=== PATIENT | female | born 1940 | race Caucasian/White ===

== ENCOUNTER 2016-06-14 11:51 | Inpatient (IN) | payer MEDICARE ==
[~2016-06-14] VITALS: Ht 162.6 cm; Wt 61.5 kg
[2016-06-14] VITALS (9 sets, daily range): BP systolic 180–215; BP diastolic 77–95; PULSE 67–80; RESP 16–18; TEMP 96.8–98.5; O2SAT 96–98
[~2016-06-14 11:51] MED LIST: CARB25TA; HYDR12.56; NAPR500; PYRI100T4; SIMV20; TRAM50; TRAZ100T50; VENL75TA91
--- NOTE | 2016-06-14 12:12 | PD ---
HPI Chief Complaint: General Weakness Time Seen by Provider: 12:12 Travel History International Travel<30 days: No Contact w/Intl Traveler<30days: No Traveled to known affect area: No History of Present Illness HPI Patient is a 75-year-old female with a history of CVA 8 years prior with left- sided weakness that has resolved presenting with a 2 week history of right arm and right leg weakness and "bumping into things ". She states since yesterday morning the weakness has gotten worse and she has had some facial droop on the right. She states that this morning she was unable to use her right leg to walk properly and she fell in a controlled fashion to the ground but did land on her right knee. She did not hit her head or lose consciousness. She denies any headaches, dizziness, nausea, vomiting, fever, neck stiffness, chest pain, shortness of breath, abdominal pain or paresthesias in her extremities. She denies any loss of bowel or bladder dysfunction. She currently takes aspirin daily. PFSH Past Medical History Arthritis: Yes Blood Disorders: No Depression: Yes Cancer: No Cardiovascular Problems: Yes High Cholesterol: Yes COPD: Yes Cerebrovascular Accident: Yes Diabetes: Yes Endocrine: Yes Genitourinary: Yes Hypertension: Yes Immune Disorder: No Musculoskeletal: Yes Neurologic: No Psychiatric: Yes Reproductive: No Respiratory: Yes ?: Not Past Surgical History Abdominal Surgery: Yes (CHOLECYSTECTOMY) Gynecologic Surgery: Yes (PARTIAL HYSTERECTOMY) Hysterectomy: Yes Pacemaker: No Social History Alcohol Use: No Tobacco Use: Yes (1 PPD) Substance Use: No Allergies-Medications (Allergen,Severity, Reaction): Coded Allergies: No Known Allergies (Verified Allergy, Mild, 07/16/06) Reported Meds & Prescriptions Reported Meds & Active Scripts Active Reported Glipizide 5 Mg Tab 5 Mg PO BIDAC Take 30 minutes before a meal Naproxen 500 Mg Tab 500 Mg PO BID Aspirin 81 Mg Tabdr 81 Mg PO DAILY Lisinopril 20 Mg Tab 20 Mg PO DAILY Metformin (Metformin HCl) 500 Mg Tab 500 Mg PO DAILY With a meal Trazodone (Trazodone HCl) 100 Mg Tab 100 Mg PO HS Tramadol (Tramadol HCl) 50 Mg Tab 50 Mg PO Q4H PRN Simvastatin 40 Mg Tab 40 Mg PO HS Metoprolol Tartrate 50 Mg Tab 50 Mg PO BID Review of Systems Except as stated in HPI: all other systems reviewed are Neg Physical Exam Narrative GENERAL: Well-developed and well-nourished adult female in no acute distress. SKIN: Warm and dry. Good turgor without tenting. HEAD: Normocephalic and atraumatic. EYES: PERRL bilaterally, 4mm. EOMI bilaterally. No injection or icterus present. No proptosis. Lids without edema or erythema. ENT: Buccal mucosa pink and moist. Oropharynx free of erythema, tonsillar hypertrophy, masses, swelling, asymmetry and exudates. Uvula midline and airway patent. NECK: Supple, no midline tenderness, crepitus or step-offs. Trachea midline, no JVD. No cervical or facial lymphadenopathy. CARDIOVASCULAR: Regular rate and rhythm without murmurs, rubs, clicks or gallops. Radial and posterior tibial pulses 2+ bilaterally. No pedal edema. RESPIRATORY: Clear to auscultation bilaterally with symmetrical rise and fall, no distress or use of accessory muscles. GASTROINTESTINAL: Non-tender, non-distended. Normal bowel sounds all 4 quadrants. No masses or organomegaly present. MUSCULOSKELETAL: Right knee has mild ecchymosis anteriorly and is tender to touch but has normal range of motion in the knee without increased laxity. Extremities without clubbing, cyanosis, or edema. No obvious deformities. NEUROLOGIC: Right-sided facial droop with tongue deviation towards the right. Awake and alert and oriented. Slow finger-nose testing with the left upper extremity, cannot perform with the right arm. Right shoulder strength 1/5, 2/5 elbow flexion and extension and reclamation worker strength. Right lower extremity is 4/5 strength in hip flexion, hip extension, knee extension, plantar and dorsiflexion. Sensation intact bilateral upper extremities but is somewhat reduced diffusely on the right upper extremity, no discrepancies with sensation of the bilateral lower extremities. They bilateral Homans sign. Downgoing Babinski's bilaterally. Normal speech. PSYCHIATRIC: Appropriate mood and affect; insight and judgment normal. Data Data Last Documented VS Vital Signs Date Time Temp Pulse Resp B/P Pulse Ox O2 Delivery O2 Flow Rate FiO2 06/14/16 13:20 80 18 214/92 96 Room Air 06/14/16 11:57 98.5 Orders Electrocardiogram (06/14/16 12:10) Prothrombin Time / Inr (Pt) (06/14/16 12:10) Act Partial Throm Time (Ptt) (06/14/16 12:10) Complete Blood Count With Diff (06/14/16 12:10) Comprehensive Metabolic Panel (06/14/16 12:10) Creatine Kinase (Cpk) (06/14/16 12:10) Drug Screen, Random Urine (06/14/16 12:10) Troponin I (06/14/16 12:10) Urinalysis - C+S If Indicated (06/14/16 12:10) Ct Brain W/O Iv Contrast(Rout) (06/14/16 12:10) Chest, Single Ap (06/14/16 12:10) Ecg Monitoring (06/14/16 12:10) Iv Access Insert/Monitor (06/14/16 12:10) Oximetry (06/14/16 12:10) Sodium Chloride 0.9% Flush (Ns Flush) (06/14/16 12:15) Knee, Complete (4vws) (06/14/16 12:10) Urine Culture (06/14/16 12:20) Consult Neurology (06/14/16 ) (Hub Use Only)Inp Phy Cons/Ref (06/14/16 ) Nitrofurantoin Monohyd Macrocr (Macrobid (06/14/16 13:30) Aspirin (Aspirin) (06/14/16 13:30) Admit Order (Ed Use Only) (06/14/16 13:53) Labs Laboratory Tests Test 06/14/16 12:20 White Blood Count 8.6 TH/MM3 Red Blood Count 4.82 MIL/MM3 Hemoglobin 15.5 GM/DL Hematocrit 43.8 % Mean Corpuscular Volume 90.9 FL Mean Corpuscular Hemoglobin 32.2 PG Mean Corpuscular Hemoglobin 35.4 % Concent Red Cell Distribution Width 12.8 % Platelet Count 163 TH/MM3 Mean Platelet Volume 9.8 FL Neutrophils (%) (Auto) 67.9 % Lymphocytes (%) (Auto) 24.8 % Monocytes (%) (Auto) 6.2 % Eosinophils (%) (Auto) 0.6 % Basophils (%) (Auto) 0.5 % Neutrophils # (Auto) 5.8 TH/MM3 Lymphocytes # (Auto) 2.1 TH/MM3 Monocytes # (Auto) 0.5 TH/MM3 Eosinophils # (Auto) 0.1 TH/MM3 Basophils # (Auto) 0.0 TH/MM3 CBC Comment DIFF FINAL Differential Comment Prothrombin Time 10.9 SEC Prothromb Time International 1.0 RATIO Ratio Activated Partial 25.0 SEC Thromboplast Time Urine Color YELLOW Urine Turbidity CLEAR Urine pH 6.5 Urine Specific Peak 1.012 Urine Protein TRACE mg/dL Urine Glucose (UA) 1000 mg/dL Urine Ketones TRACE mg/dL Urine Occult Blood NEG Urine Nitrite POS Urine Bilirubin NEG Urine Urobilinogen LESS THAN 2.0 MG/DL Urine Leukocyte Esterase NEG Urine RBC LESS THAN 1 /hpf Urine WBC 1 /hpf Urine Squamous Epithelial 1 /hpf Cells Urine Mucus FEW /lpf Microscopic Urinalysis Comment CATH-CULTURE IND Sodium Level 136 MEQ/L Potassium Level 4.7 MEQ/L Chloride Level 99 MEQ/L Carbon Dioxide Level 22.8 MEQ/L Anion Gap 14 MEQ/L Blood Urea Nitrogen 6 MG/DL Creatinine 0.63 MG/DL Estimat Glomerular Filtration 93 ML/MIN Rate Random Glucose 240 MG/DL Calcium Level 8.4 MG/DL Total Bilirubin 1.0 MG/DL Aspartate Amino Transf 64 U/L (AST/SGOT) Alanine Aminotransferase 56 U/L (ALT/SGPT) Alkaline Phosphatase 183 U/L Total Creatine Kinase 175 U/L Troponin I 0.14 NG/ML Total Protein 7.6 GM/DL Albumin 3.5 GM/DL [facility] Medical Decision Making Medical Screen Exam Complete: Yes Emergency Medical Condition: Yes Differential Diagnosis CVA versus TIA versus hypertensive emergency versus brain mass versus myelitis Narrative Course Patient is a 75-year-old female with history of CVA years prior presenting with 2 weeks of right-sided weakness that has acutely worsened approximately the last 24+ hours. She had a "fall" this morning as she was trying to walk due to right leg weakness and lowered herself to the ground and has had some pain with the right knee. She has significant weakness in the right upper extremity and slight weakness in the right leg. Reduced sensation on the right upper extremity as well as facial droop and tongue deviation. She denies any other symptoms at this time and exam is otherwise unremarkable. Conferred with Dr. Miller who also evaluated this patient and agrees to has likely suffered a CVA. Given the time there is no emergent treatment. CT scan does show a 1 cm low density area in the left basal ganglion consistent with stroke of indeterminate age or possible cephalo-malacia. Patient also had positive nitrates and was given first dose of Macrobid here. Dr. Peterson spoke to neurology and admitted the patient. Please refer to her note for final disposition.I discussed this patient with Dr. Miller throughout their care. She has also evaluated this patient, helped formulate, and agrees with the assessment and plan. Diagnosis Primary Impression: CVA (cerebral vascular accident) Qualified Code: I63.9 - Cerebrovascular accident (CVA), unspecified mechanism Additional Impression: Cystitis Admitting Information Admitting Physician Requests: Admit Condition: Stable George Chao III Jun 14, 2016 12:12
[2016-06-14] MEDS ORDERED: SODIUM CHLORIDE 0.9% FLUSH 5 ML FLUSH IVF PRN ×2 (12:15→14:00)
[2016-06-14] MEDS ORDERED: METO50TA PO (12:27)
[2016-06-14] MEDS ORDERED: SIMV40TA PO (12:27)
[2016-06-14 12:31] LABS: AUTOMATED NEUTROPHIL # 5.8 TH/MM3 (1.8-7.7); BASOPHIL % 0.5 % (0.0-2.0); EOSINOPHIL # 0.1 TH/MM3 (0-0.4); EOSINOPHIL % 0.6 % (0.0-4.0); HEMATOCRIT 43.8 % (35.0-46.0); HEMO FLAGS DIFF FINAL; LYMPH % 24.8 % (9.0-44.0); LYMPHOCYTE # 2.1 TH/MM3 (1.0-4.8); MEAN CELL VOLUME 90.9 FL (80.0-100.0); MEAN CORPUSCULAR HEMOGLOBIN 32.2 PG (27.0-34.0); MEAN CORPUSCULAR HGB CONC 35.4 % (32.0-36.0); MONO % 6.2 % (0.0-8.0); NEUT % 67.9 % (16.0-70.0); PLATELET COUNT 163 TH/MM3 (150-450); RED BLOOD COUNT 4.82 MIL/MM3 (4.00-5.30); RED CELL DISTRIBUTION WIDTH 12.8 % (11.6-17.2); WHITE BLOOD COUNT 8.6 TH/MM3 (4.0-11.0)
[2016-06-14 12:38] LABS: BLOOD, URINE NEG (NEG); GLUCOSE,URINE 1000 mg/dL (NEG); KETONE, URINE TRACE mg/dL (NEG); MUCUS URINE FEW /lpf (OCC); PH, URINE 6.5 (5.0-8.5); SQUAMOUS EPITHELIAL CELL URINE 1 /hpf (0-5); URINE COLOR YELLOW (YELLW/STRAW)
[2016-06-14 12:39] LABS: COMMENT (UR) CATH-CULTURE IND; CULTURE IF INDICATED CATH CULTURE IND; NITRITE,URINE POS (NEG)
[2016-06-14 12:40] LABS: PROTHROMBIN TIME - PATIENT 10.9 SEC (9.8-11.6)
--- NOTE | 2016-06-14 12:41 | RADRPT ---
EXAM DATE/TIME: 06/14/2016 12:31 [facility] COMPARISON: No previous studies available for comparison. INDICATIONS : Slurred speech and right arm weakness. RADIATION DOSE: 36.17 CTDIvol (mGy) MEDICAL HISTORY : Hypertension. Chronic obstructive pulmonary disease. Diabetes mellitus type 2. SURGICAL HISTORY : None. ENCOUNTER: Initial ACUITY: 1 day PAIN SCALE: 0/10 LOCATION: cranial TECHNIQUE: Multiple contiguous axial images were obtained of the head. Using automated exposure control and adj ustment of the mA and/or kV according to patient size, radiation dose was kept as low as reasonably a chievable to obtain optimal diagnostic quality images. FINDINGS: CEREBRUM: The ventricles are normal for age. No evidence of midline shift, mass lesion, hemorrhage No extra-a xial fluid collections are seen. There is a 1 cm somewhat triangular area of low density in the left basal ganglia at or around involving the knee of the internal capsule. POSTERIOR FOSSA: The cerebellum and brainstem are intact. The 4th ventricle is midline. The cerebellopontine angle i s unremarkable. EXTRACRANIAL: The visualized portion of the orbits is intact. SKULL: The calvaria is intact. No evidence of skull fracture. CONCLUSION: 1 cm low density area left basal ganglion at the region of the knee of the internal capsule consisten t with encephalomalacia or stroke indeterminate age. Tye Fitch MD on June 14, 2016 at 12:38 Board Certified Radiologist. This report was verified electronically.
--- NOTE | 2016-06-14 13:08 | RADRPT ---
EXAM DATE/TIME: 06/14/2016 13:00 [facility] COMPARISON: No previous studies available for comparison. INDICATIONS : Stroke yesterday. MEDICAL HISTORY : Stroke. SURGICAL HISTORY : None. ENCOUNTER: Initial ACUITY: 1 day PAIN SCORE: 0/10 LOCATION: Bilateral chest FINDINGS: A single view of the chest demonstrates the lungs to be symmetrically aerated without evidence of mas s, infiltrate or effusion. The cardiomediastinal contours are unremarkable. Osseous structures are intact. CONCLUSION: No acute intrathoracic disease. Dangelo Gay MD on June 14, 2016 at 13:06 Board Certified Radiologist. This report was verified electronically.
--- NOTE | 2016-06-14 13:09 | RADRPT ---
EXAM DATE/TIME: 06/14/2016 13:01 [facility] COMPARISON: No previous studies available for comparison. INDICATIONS : Stroke yesterday, fell out of bed. MEDICAL HISTORY : Stroke. SURGICAL HISTORY : None. ENCOUNTER: Initial ACUITY: 1 day PAIN SCORE: 4/10 LOCATION: Right knee FINDINGS: There is moderate osteoarthritis of the knee joint. There is narrowing of the medial joint compartmen t. No significant joint effusion. No acute fracture or joint dislocation. The patella grossly intact. CONCLUSION: 1. No acute fracture or joint dislocation. 2. Moderate primary osteoarthritis at the knee joint with narrowing of the medial joint compartment. Dangelo Gay MD on June 14, 2016 at 13:06 Board Certified Radiologist. This report was verified electronically.
[2016-06-14 13:12] LABS: ALKALINE PHOSPHATASE 183 U/L (45-117); ALT (GPT) 56 U/L (10-53); ANION GAP 14 MEQ/L (5-15); BICARBONATE 22.8 MEQ/L (21.0-32.0); BLOOD UREA NITROGEN 6 MG/DL (7-18); CHLORIDE 99 MEQ/L (98-107); CREATINE KINASE 175 U/L (26-192); GLOMERULAR FILTRATION RATE 93 ML/MIN (>89); SODIUM (NA) 136 MEQ/L (136-145)
[2016-06-14 13:13] LABS: AST (GOT) 64 U/L (15-37); POTASSIUM 4.7 MEQ/L (3.5-5.1)
--- NOTE | 2016-06-14 13:25 | PD ---
Data Data Last Documented VS Vital Signs Date Time Temp Pulse Resp B/P Pulse Ox O2 Delivery O2 Flow Rate FiO2 06/14/16 13:20 80 18 214/92 96 Room Air 06/14/16 11:57 98.5 Orders Electrocardiogram (06/14/16 12:10) Prothrombin Time / Inr (Pt) (06/14/16 12:10) Act Partial Throm Time (Ptt) (06/14/16 12:10) Complete Blood Count With Diff (06/14/16 12:10) Comprehensive Metabolic Panel (06/14/16 12:10) Creatine Kinase (Cpk) (06/14/16 12:10) Drug Screen, Random Urine (06/14/16 12:10) Troponin I (06/14/16 12:10) Urinalysis - C+S If Indicated (06/14/16 12:10) Ct Brain W/O Iv Contrast(Rout) (06/14/16 12:10) Chest, Single Ap (06/14/16 12:10) Ecg Monitoring (06/14/16 12:10) Iv Access Insert/Monitor (06/14/16 12:10) Oximetry (06/14/16 12:10) Sodium Chloride 0.9% Flush (Ns Flush) (06/14/16 12:15) Knee, Complete (4vws) (06/14/16 12:10) Urine Culture (06/14/16 12:20) Consult Neurology (06/14/16 ) Labs Laboratory Tests Test 06/14/16 12:20 White Blood Count 8.6 TH/MM3 Red Blood Count 4.82 MIL/MM3 Hemoglobin 15.5 GM/DL Hematocrit 43.8 % Mean Corpuscular Volume 90.9 FL Mean Corpuscular Hemoglobin 32.2 PG Mean Corpuscular Hemoglobin 35.4 % Concent Red Cell Distribution Width 12.8 % Platelet Count 163 TH/MM3 Mean Platelet Volume 9.8 FL Neutrophils (%) (Auto) 67.9 % Lymphocytes (%) (Auto) 24.8 % Monocytes (%) (Auto) 6.2 % Eosinophils (%) (Auto) 0.6 % Basophils (%) (Auto) 0.5 % Neutrophils # (Auto) 5.8 TH/MM3 Lymphocytes # (Auto) 2.1 TH/MM3 Monocytes # (Auto) 0.5 TH/MM3 Eosinophils # (Auto) 0.1 TH/MM3 Basophils # (Auto) 0.0 TH/MM3 CBC Comment DIFF FINAL Differential Comment Prothrombin Time 10.9 SEC Prothromb Time International 1.0 RATIO Ratio Activated Partial 25.0 SEC Thromboplast Time Urine Color YELLOW Urine Turbidity CLEAR Urine pH 6.5 Urine Specific [place] 1.012 Urine Protein TRACE mg/dL Urine Glucose (UA) 1000 mg/dL Urine Ketones TRACE mg/dL Urine Occult Blood NEG Urine Nitrite POS Urine Bilirubin NEG Urine Urobilinogen LESS THAN 2.0 MG/DL Urine Leukocyte Esterase NEG Urine RBC LESS THAN 1 /hpf Urine WBC 1 /hpf Urine Squamous Epithelial 1 /hpf Cells Urine Mucus FEW /lpf Microscopic Urinalysis Comment CATH-CULTURE IND Sodium Level 136 MEQ/L Potassium Level 4.7 MEQ/L Chloride Level 99 MEQ/L Carbon Dioxide Level 22.8 MEQ/L Anion Gap 14 MEQ/L Blood Urea Nitrogen 6 MG/DL Creatinine 0.63 MG/DL Estimat Glomerular Filtration 93 ML/MIN Rate Random Glucose 240 MG/DL Calcium Level 8.4 MG/DL Total Bilirubin 1.0 MG/DL Aspartate Amino Transf 64 U/L (AST/SGOT) Alanine Aminotransferase 56 U/L (ALT/SGPT) Alkaline Phosphatase 183 U/L Total Creatine Kinase 175 U/L Troponin I 0.14 NG/ML Total Protein 7.6 GM/DL Albumin 3.5 GM/DL MDM Supervised Visit with LACIE: Yes Narrative Course I, Dr. Miller, have reviewed the advance practice practioner's documentation and am in agreement, met with the patient face to face, made the diagnosis, and the medical decision making was done by me. *My assessment and Findings: Patient is a 75-year-old female who presents the emergency department with complaint of weakness. She has a history of CVA approximately 8 years ago but no deficit at baseline. Yesterday she noticed that her right arm and leg were weak and she was "bumping into things". She is also noted facial droop. She has not noticed any difficulty speaking, but states that she has been home alone so hasn't been speaking to anybody. Patient finally decided to come to the ER today. On exam she has right sided weakness, right sided facial droop. No real aphasia or dysarthria, but her speech seems to be labored due to her facial droop and drooling from the right aspect of the mouth. She has tongue deviation to the right as well. Symptoms are highly suspicious for CVA yesterday, differential includes electrolyte abnormality, mass lesion, ICH. Twelve-lead EKG shows sinus rhythm. No notable ST abnormalities and normal intervals. CT of the brain shows a 1 cm low density area in the left basal ganglia on the region of the knee of the internal capsule consistent with encephalomalacia or stroke of indeterminate age. Laboratory workup notable for minimally elevated troponin 0.14. Again her EKG is unremarkable without ischemic changes. Patient's urinalysis was positive for nitrite, will treat with Macrobid while we await culture. Given her symptom onset yesterday patient is certainly outside the when note for thrombolytic therapy. Neurology was consulted and patient will be admitted. Critical Care Narrative Aggregate critical care time was 20 minutes. Time to perform other separately billable procedures was not included in the critical care time. My time did not include minutes spent treating any other patients simultaneously or on activities that did not directly contribute to the patient's treatment. The services I provided to this patient were to treat and/or prevent clinically significant deterioration that could result in: Neurologic decompensation, , disability I provided critical care services requiring my management, as noted below: Chart data review, documentation time, medication orders and management, vital sign assessments/reviewing monitor data, ordering and reviewing lab tests, ordering and interpreting/reviewing x-rays and diagnostic studies, care of the patient and discussion of the patient with the admitting physicians. Diagnosis Primary Impression: CVA (cerebral vascular accident) Qualified Code: I63.9 - Cerebrovascular accident (CVA), unspecified mechanism Admitting Information Admitting Physician Requests: it Belem Miller MD Jun 14, 2016 13:25
[2016-06-14] MEDS ORDERED: NITROFURANTOIN MONOHYD MACROCR 100 MG CAP PO ONE (13:30)
[2016-06-14] MEDS ORDERED: ASPIRIN 325 MG TAB TUBE ONE (13:30)
[2016-06-14] MEDS ORDERED: NAPR500T PO (13:32)
[2016-06-14] MEDS ORDERED: ASPI1TAB69 PO (13:32)
[2016-06-14] MEDS ORDERED: GLIP5TAB8 PO (13:32)
[2016-06-14] MEDS ORDERED: TRAZ100T4 PO (13:32)
[2016-06-14] MEDS ORDERED: TRAM50TA PO (13:32)
[2016-06-14] MEDS ORDERED: LISI-515 PO (13:32)
[2016-06-14] MEDS ORDERED: METF500T PO (13:32)
[2016-06-14] MEDS ORDERED: LABETALOL HCL 100 MG/20 ML VIAL IV PRN (14:00)
[2016-06-14] MEDS ORDERED: ENALAPRILAT 1.25 MG/ML VIAL IV PRN (14:00)
[2016-06-14] MEDS ORDERED: DEXTROSE 50% IN WATER 50 ML VIAL(D50) IV PUSH PRN ×2 (14:00→18:45)
[2016-06-14] MEDS ORDERED: GLUCAGON 1 MG/ML VIAL IM/SQ PRN (14:00)
--- NOTE | 2016-06-14 14:50 | HHI.HP ---
[facility] Primary Care Physician Unknown Admission Diagnosis CVA Diagnoses: (1) CVA (cerebral vascular accident) Chief Complaint: Right-sided weakness with slurred speech Travel History International Travel<30 Days: No Contact w/Intl Traveler <30 Da: No Traveled to Known Affected Are: No History of Present Illness 75-year-old female with a prior history of CVA was brought to the ED today for evaluation of right upper and lower extremities weakness along with some speech difficulty as well as facial droop since yesterday but worse today, as patient fell off her bed around 7 AM this morning landing on her face. Patient states she usually takes aspirin daily which she did take. She report a prior history of CVA 8 years ago without any residual weakness. She denies any chest pain, shortness of breath, GI bleed. CT of the brain shows a 1 cm low density area in the left basal ganglia on the region of the knee of the internal capsule consistent with encephalomalacia or stroke of indeterminate age Review of Systems Other Other 12 systems reviewed and are negative except for the one mentioned in history of present illness Past Family Social History Past Medical History Arthritis: Yes Blood Disorders: No Depression: Yes Cardiovascular Problems: Yes High Cholesterol: Yes COPD: Yes Cerebrovascular Accident: Yes Diabetes: Yes Past Surgical History Abdominal Surgery: Yes (CHOLECYSTECTOMY) Gynecologic Surgery: Yes (PARTIAL HYSTERECTOMY) Hysterectomy: Yes Reported Medications Glipizide 5 Mg Tab 5 Mg PO BIDAC Take 30 minutes before a meal Naproxen 500 Mg Tab 500 Mg PO BID Aspirin 81 Mg Tabdr 81 Mg PO DAILY Lisinopril 20 Mg Tab 20 Mg PO DAILY Metformin (Metformin HCl) 500 Mg Tab 500 Mg PO DAILY With a meal Trazodone (Trazodone HCl) 100 Mg Tab 100 Mg PO HS Tramadol (Tramadol HCl) 50 Mg Tab 50 Mg PO Q4H PRN Simvastatin 40 Mg Tab 40 Mg PO HS Metoprolol Tartrate 50 Mg Tab 50 Mg PO BID Allergies: Coded Allergies: No Known Allergies (Verified Allergy, Mild, 07/16/06) Social History Alcohol Use: No Tobacco Use: Yes (1 PPD) Substance Use: No Physical Exam Vital Signs Vital Signs Date Time Temp Pulse Resp B/P Pulse Ox O2 Delivery O2 Flow Rate FiO2 06/14/16 14:44 71 18 180/77 97 Room Air 06/14/16 13:20 80 18 214/92 96 Room Air 06/14/16 12:16 98 Room Air 06/14/16 12:08 74 18 196/88 96 Room Air 06/14/16 11:57 98.5 79 16 204/88 96 Physical Exam GENERAL: This is a well-nourished, well-developed patient, in no apparent distress. SKIN: No rashes, ecchymoses or lesions. Cool and dry. HEAD: Atraumatic. Normocephalic. No temporal or scalp tenderness. EYES: Pupils equal round and reactive. Extraocular motions intact. No scleral icterus. No injection or drainage. ENT: Nose without bleeding, purulent drainage or septal hematoma. Throat without erythema, tonsillar hypertrophy or exudate. Uvula midline. Airway patent. NECK: Trachea midline. No JVD or lymphadenopathy. Supple, nontender, no meningeal signs. CARDIOVASCULAR: Regular rate and rhythm without murmurs, gallops, or rubs. RESPIRATORY: Clear to auscultation. Breath sounds equal bilaterally. No wheezes , rales, or rhonchi. GASTROINTESTINAL: Abdomen soft, non-tender, nondistended. No hepato-splenomegaly , or palpable masses. No guarding. MUSCULOSKELETAL: Extremities without clubbing, cyanosis, or edema. No joint tenderness, effusion, or edema noted. No calf tenderness. Negative Homans sign bilaterally. NEUROLOGICAL: Awake and alert. Facial drop with slurred speech; 3/5 RUE; 4/5 RUE Laboratory Laboratory Tests Test 06/14/16 12:20 White Blood Count 8.6 Red Blood Count 4.82 Hemoglobin 15.5 Hematocrit 43.8 Mean Corpuscular Volume 90.9 Mean Corpuscular Hemoglobin 32.2 Mean Corpuscular Hemoglobin 35.4 Concent Red Cell Distribution Width 12.8 Platelet Count 163 Mean Platelet Volume 9.8 Neutrophils (%) (Auto) 67.9 Lymphocytes (%) (Auto) 24.8 Monocytes (%) (Auto) 6.2 Eosinophils (%) (Auto) 0.6 Basophils (%) (Auto) 0.5 Neutrophils # (Auto) 5.8 Lymphocytes # (Auto) 2.1 Monocytes # (Auto) 0.5 Eosinophils # (Auto) 0.1 Basophils # (Auto) 0.0 CBC Comment DIFF FINAL Differential Comment Prothrombin Time 10.9 Prothromb Time International 1.0 Ratio Activated Partial 25.0 Thromboplast Time Urine Color YELLOW Urine Turbidity CLEAR Urine pH 6.5 Urine Specific [place] 1.012 Urine Protein TRACE Urine Glucose (UA) 1000 Urine Ketones TRACE Urine Occult Blood NEG Urine Nitrite POS Urine Bilirubin NEG Urine Urobilinogen LESS THAN 2.0 Urine Leukocyte Esterase NEG Urine RBC LESS THAN 1 Urine WBC 1 Urine Squamous Epithelial 1 Cells Urine Mucus FEW Microscopic Urinalysis Comment CATH-CULTURE IND Sodium Level 136 Potassium Level 4.7 Chloride Level 99 Carbon Dioxide Level 22.8 Anion Gap 14 Blood Urea Nitrogen 6 Creatinine 0.63 Estimat Glomerular Filtration 93 Rate Random Glucose 240 Calcium Level 8.4 Total Bilirubin 1.0 Aspartate Amino Transf 64 (AST/SGOT) Alanine Aminotransferase 56 (ALT/SGPT) Alkaline Phosphatase 183 Total Creatine Kinase 175 Troponin I 0.14 Total Protein 7.6 Albumin 3.5 Date/Time Procedure Status Source Growth 06/14/16 12:20 Urine Culture Received Urine Catheterized Urine Pending Result Diagram: 06/14/16 1220 06/14/16 1220 Imaging Last Impressions Knee X-Ray 06/14/16 1210 Signed Impressions: Service Date/Time: Tuesday, June 14, 2016 13:01 - CONCLUSION: 1. No acute fracture or joint dislocation. 2. Moderate primary osteoarthritis at the knee joint with narrowing of the medial joint compartment. Dangelo Gay MD Head CT 06/14/16 1210 Signed Impressions: Service Date/Time: Tuesday, June 14, 2016 12:31 - CONCLUSION: 1 cm low density area left basal ganglion at the region of the knee of the internal capsule consistent with encephalomalacia or stroke indeterminate age. Tye Fitch MD Chest X-Ray 06/14/16 1210 Signed Impressions: Service Date/Time: Tuesday, June 14, 2016 13:00 - CONCLUSION: No acute intrathoracic disease. Dangelo Gay MD Assessment and Plan Problem List: (1) CVA (cerebral vascular accident) ICD Code: I63.9 Status: Acute (2) Diabetes type 1, uncontrolled ICD Code: E10.65 Status: Acute (3) Troponin level elevated ICD Code: R79.89 Status: Acute (4) Abnormal urinalysis ICD Code: R82.90 Status: Acute Assessment and Plan 75-year-old female with Acute CVA: Treatment per stroke protocol -Continue with aspirin -Start statin therapy -NIHSS, Neuro checks, Monitor on telemetry -PT/OT/ST evaluations, consult rehab medicine -allow permissive HTN, IV Vasotec and IV labetalol if SBP >220 -Check lipid profile and HgbA1c -Check carotid U/S -Head CT 06/14/16 noted and review by me with the finding of 1 cm low density area left basal ganglion at the region of the knee of the internal capsule consistent with encephalomalacia or stroke indeterminate age -Check brain MRI/MRA -Check echocardiogram -Neurology consulted History of hypertension: We will allow for permissive hypertension Diabetes type 2: Start insulin sliding scale with fingerstick blood glucose monitoring. Hold home regiment Abnormal UA: s/p Macrobid in the ED; will start Rocephin 1gm IV daily 06/15/16 pending UC Mildly elevated troponin I: Although no complaint of chest pain, will rule out ACS per protocol with serial cardiac enzyme and EKGs and treat accordingly. 2- D echo pending Tobacco abuse: Counseled to quit DVT prophylaxis: Bilateral SCDs Code Status Full code Discussed Condition With Patient, ED physician Physician Certification 2 Midnight Certification Type: Admission for Inpatient Services Order for Inpatient Services The services are ordered in accordance with Medicare regulations or non- Medicare payer requirements, as applicable. In the case of services not specified as inpatient-only, they are appropriately provided as inpatient services in accordance with the 2-midnight benchmark. Estimated LOS (days): 2 days is the estimated time the patient will need to remain in the hospital, assuming treatment plan goals are met and no additional complications. Post-Hospital Plan: Not yet determined Problem Qualifiers (1) CVA (cerebral vascular accident): Qualified Code: I63.9 - Cerebrovascular accident (CVA), unspecified mechanism Clem Pickard MD Jun 14, 2016 14:50
[2016-06-14] MEDS ORDERED: INSULIN ASPART SUPPLEMENTAL SCALE SQ SCH (16:00)
--- NOTE | 2016-06-14 17:11 | RADRPT ---
EXAM DATE/TIME: 06/14/2016 16:36 [facility] COMPARISON: CT BRAIN W/O CONTRAST, June 14, 2016, 12:31. INDICATIONS : Right sided weakness. MEDICAL HISTORY : Stroke Hypertension. Diabetes mellitus type 2. SURGICAL HISTORY : Cholecystectomy. ENCOUNTER: Initial ACUITY: 1 day PAIN SCORE: 0/10 LOCATION: head TECHNIQUE: Multiplanar, multisequence MRI of the brain was performed without contrast. FINDINGS: CEREBRUM: Moderate periventricular and mild deep white matter microvascular ischemic demyelinization. Area of a bnormality at the knee of the left internal capsule basal ganglion represents a remote lacunar infarc t. In the left mid basal ganglion there is a slightly asymmetric area of subtle diffusion increased s ignal intensity suggesting a possible acute lacunar infarct. WHITE MATTER: No significant signal abnormalities are seen in the white matter. POSTERIOR FOSSA: The cerebellum and brainstem are intact. The 4th ventricle is midline. The cerebellopontine angle is unremarkable. The cerebellar tonsils are normal in position. DIFFUSION IMAGING: No focal areas of restricted diffusion are seen. No evidence of acute infarction. EXTRACRANIAL: The visualized portions of the orbits and paranasal sinuses are unremarkable. CONCLUSION: Periventricular and lesser extent deep white matter microvascular ischemic demyelinization with the r ecent CT scan abnormality representing a remote lacunar infarct. There is a subtle area of diffusion abnormality in the mid le ft basal ganglion subcentimeter in size which is suggestive of any acute lacunar infarct Tye Fitch MD on June 14, 2016 at 17:07 Board Certified Radiologist. This report was verified electronically.
[2016-06-14] MEDS ORDERED: RESP: ALBUTEROL 2.5 MG/IPRATROPIUM 0.5 MG NEB (PRN) NEB (17:15)
--- NOTE | 2016-06-14 17:28 | RADRPT ---
EXAM DATE/TIME: 06/14/2016 16:36 [facility] COMPARISON: MRI BRAIN W/O CONTRAST, June 14, 2016, 16:36. INDICATIONS : Right sided weakness. MEDICAL HISTORY : Stroke Hypertension. Diabetes mellitus type 2. SURGICAL HISTORY : Cholecystectomy. ENCOUNTER: Initial ACUITY: 2 day PAIN SCORE: 0/10 LOCATION: head Please note a normal MRA of the brain does not entirely exclude the possibility of a small aneurysm, nor the possibility of distal intracranial vessel disease. TECHNIQUE: 3D time of flight MRA was performed. Source images, multiplanar STS MIP, and 3D volume MIP reconstru ctions were reviewed. FINDINGS: There is excellent visualization of the major intracranial arteries out to the second-order branch ve ssels. The patient has variant anatomy. There is a dominant left A1 segment with a diffusely small c aliber right A1 segment. An anterior communicating artery is noted. There is persistent circula tion on the right. Scattered atherosclerotic plaque is seen throughout the intracranial vessels. His most abundant within the intercavernous ICAs bilaterally. It causes significant stenosis of the left P1 segment and left A2 segment. No aneurysms or arteriovenous malformations observed. CONCLUSION: 1. Atherosclerotic disease with significant stenoses involving the left A2 and left P1 segments. 2. Variant anatomy. Ricky Dangelo Jr., MD on June 14, 2016 at 17:16 Board Certified Radiologist. This report was verified electronically.
--- NOTE | 2016-06-14 17:57 | EC ---
Study Study Date:06/14/2016 STUDY CONCLUSIONS SUMMARY - Left ventricle: The cavity size was normal. Wall thickness was normal. Systolic function was normal. The estimated ejection fraction was in the range of 55% to 60%. Wall motion was normal; there were no regional wall motion abnormalities. - Aortic valve: Valve area: 1.78cm^2 (Vmax). - Mitral valve: Mildly calcified annulus. Impressions: No cardiac source of emboli was indentified. If LV function is below 40, please consider prescribing an ACEI or ARB or document rationale for non-use. PROCEDURE DATA STUDY STATUS: Elective. Procedure: Transthoracic echocardiography. Image quality was good. Scanning was performed from the parasternal, apical, and subcostal acoustic windows. Study completion: The patient tolerated the procedure well. Transthoracic echocardiography. M-mode, complete 2D, complete spectral Doppler, and color Doppler. Patient status: Inpatient. CARDIAC ANATOMY LEFT VENTRICLE: The cavity size was normal. Wall thickness was normal. Systolic function was normal. The estimated ejection fraction was in the range of 55% to 60%. Wall motion was normal; there were no regional wall motion abnormalities. AORTIC VALVE: Trileaflet; normal thickness, mildly calcified leaflets. Doppler: Transvalvular velocity was within the normal range. There was no stenosis. No regurgitation. Valve area: 1.78cm^2 (Vmax). Mean gradient: 9mm Hg (S). Peak gradient: 15mm Hg (S). AORTA: Aortic root: The aortic root was normal in size. MITRAL VALVE: Mildly calcified annulus. Doppler: Transvalvular velocity was within the normal range. There was no evidence for stenosis. No regurgitation. LEFT ATRIUM: The atrium was normal in size. RIGHT VENTRICLE: The cavity size was normal. Wall thickness was normal. PULMONIC VALVE: Doppler: Transvalvular velocity was within the normal range. There was no evidence for stenosis. No regurgitation. TRICUSPID VALVE: Structurally normal valve. Doppler: Transvalvular velocity was within the normal range. No regurgitation. PULMONARY ARTERY: The main pulmonary artery was normal-sized. Systolic pressure was within the normal range. RIGHT ATRIUM: The atrium was normal in size. PERICARDIUM: There was no pericardial effusion. SYSTEMIC VEINS: Inferior vena cava: The vessel was normal in size. BASIC MEASUREMENTS ADULT NORMAL Left ventricle LV internal dimension, ED, chordal level, 50.1 mm 43-52 PLAX LV internal dimension, ES, chordal level, 38 mm 23-38 PLAX Fractional shortening, chordal level, PLAX *24 % >29 LV posterior wall thickness, ED 8.54 mm IVS/LVPW ratio, ED 1.19 <1.3 Ventricular septum Septal thickness, ED 10.2 mm Aortic valve Leaflet separation 18 mm 15-26 Right ventricle RV internal dimension, ED, PLAX 21 mm 19-38 BASIC MEASUREMENTS ADULT NORMAL Aortic valve Leaflet separation 18 mm 15-26 Aorta Root diameter, ED 25 mm 20-37 Left atrium Anterior-posterior dimension, ES 38 mm 19-40 LA/aortic root ratio 1.52 DOPPLER MEASUREMENTS ADULT NORMAL Main pulmonary artery Pressure, S 24 mm Hg =30 Aortic valve Peak velocity, S 194 cm/s Mean velocity, S 140 cm/s VTI, S 47.8 cm Mean gradient, S 9 mm Hg Peak gradient, S 15 mm Hg Valve area, Vmax 1.78 cm^2 Mitral valve Peak E-wave velocity 66.6 cm/s Peak A-wave velocity 93.8 cm/s Deceleration time *296 ms 150-230 Peak E/A ratio 0.7 Tricuspid valve Regurgitant peak velocity 210 cm/s Peak RV-RA gradient, S 18 mm Hg Maximal regurgitant velocity 210 cm/s Systemic veins Estimated CVP 10 mm Hg Right ventricle RV pressure, S *30 mm Hg <30 Pulmonic valve Peak velocity, S 118 cm/s LEGEND: Mean values are shown as u=mean value. Asterisk (*) johnson values outside specified normal range. Prepared and signed by Mavis Calderon [id number]
[2016-06-14] MEDS ORDERED: GLUCAGON 1 MG/ML VIAL OTHER PRN (18:45)
[2016-06-14 19:11] LABS: AMPHETAMINE, URINE NEG (NEG); BARBITURATES, URINE NEG (NEG); COCAINE, URINE NEG (NEG)
[2016-06-14 20:16] LABS: CREATINE KINASE 156 U/L (26-192)
[2016-06-14] MEDS: INSULIN ASPART SUPPLEMENTAL SCALE SQ SCH (21:00)
[2016-06-14] MEDS: PRAVASTATIN SOD 80 MG TAB PO SCH (21:17)
[2016-06-14] MEDS: SODIUM CHLORIDE 0.9% FLUSH 5 ML FLUSH IVF SCH (21:17)
[2016-06-14] MEDS ORDERED: SODIUM CHLOR 0.9% 1000 ML INJ 1,000 ML IV SCH (23:00)
[2016-06-15] VITALS (10 sets, daily range): BP systolic 160–201; BP diastolic 68–91; PULSE 71–98; RESP 18–20; TEMP 97–98.5; O2SAT 94–98
--- NOTE | 2016-06-15 06:07 | RADRPT ---
EXAM DATE/TIME: 06/15/2016 05:36 [facility] COMPARISON: CT BRAIN W/O CONTRAST, June 14, 2016, 12:31. INDICATIONS : Fall. Hit right side of head. RADIATION DOSE: 56.77 CTDIvol (mGy) MEDICAL HISTORY : Hypertension. Diabetes. SURGICAL HISTORY : None. ENCOUNTER: Initial ACUITY: 1 day PAIN SCALE: 1/10 LOCATION: Right cranial TECHNIQUE: Multiple contiguous axial images were obtained of the head. Using automated exposure control and adj ustment of the mA and/or kV according to patient size, radiation dose was kept as low as reasonably a chievable to obtain optimal diagnostic quality images. FINDINGS: CEREBRUM: Old infarcts left basal ganglia. Areas of low-attenuation are seen throughout the periventricular whi te matter. The ventricles are normal for age. No evidence of midline shift, mass lesion, hemorrhage or acute infarction. No extra-axial fluid collections are seen. POSTERIOR FOSSA: The cerebellum and brainstem are intact. The 4th ventricle is midline. The cerebellopontine angle i s unremarkable. EXTRACRANIAL: The visualized portion of the orbits is intact. SKULL: The calvaria is intact. No evidence of skull fracture. CONCLUSION: 1. Chronic ischemic small vessel vasculopathy. 2. Remote infarct left basal ganglia. 3. No acute hemorrhage. Clem Prather MD on June 15, 2016 at 6:04 Board Certified Radiologist. This report was verified electronically.
[2016-06-15] MEDS: INSULIN ASPART SUPPLEMENTAL SCALE SQ SCH ×4 (06:31→21:29)
--- NOTE | 2016-06-15 06:31 | HHI.PR ---
Addendum to Inpatient Note Addendum Reason: Additional Documentation Additional Information Patient fell in room from bed to floor. She struck her head during fall. Head CT obtained which resulted with no acute hemorrhage, remote infarct left basal ganglia, and chronic ischemic small vessel vasculopathy. Vital signs are stable. Patient does not appear injured elsewhere. Rhonda Gimenez Jun 15, 2016 06:31
[2016-06-15] MEDS: SODIUM CHLORIDE 0.9% FLUSH 5 ML FLUSH IVF SCH ×2 (09:10→21:28)
[2016-06-15] MEDS: ASPIRIN 325 MG TAB PO SCH (09:10)
[2016-06-15] MEDS: PANTOPRAZOLE SOD 40 MG DELAYED RELEASE TAB PO SCH (09:10)
[2016-06-15] MEDS: cefTRIAXone INJ 1,000 MG in SODIUM CHLORIDE 0.9% INJ 100 ML IV SCH (09:10)
[2016-06-15 09:24] LABS: HDL CHOLESTEROL 42.8 MG/DL (40.0-60.0)
--- NOTE | 2016-06-15 09:36 | RADRPT ---
EXAM DATE/TIME: 06/15/2016 08:02 [facility] COMPARISON: No previous studies available for comparison. INDICATIONS : Cerebrovascular accident. MEDICAL HISTORY : Hypercholesterolemia. Hypertension. Hypercholesterolemia. Cerebrovascular accident. COPD. Arthritis. Diabetes. SURGICAL HISTORY : Cholecystectomy. Hysterectomy. ENCOUNTER: Initial ACUITY: 2 days PAIN SCORE: 0/10 LOCATION: Bilateral neck PEAK SYSTOLIC VELOCITIES (cm/sec): ICA/CCA RATIO: Right: 1.6 Left: 1.0 ICA: Right: 76 Left: 93 CCA: Right: 47 Left: 92 ECA: Right: 119 Left: 116 VERTEBRAL: Right: 46 antegrade Left: 70 antegrade Elevated flow velocities and ICA/CCA ratios have been found to correlate with increased degrees of vessel stenosis, calculated as percentage of diameter relative to a normal segment of distal ICA/CCA FINDINGS: RIGHT CAROTID: No significant stenosis is visualized. The waveforms are within normal limits. [id number] plaq ue deposition at the bifurcation. LEFT CAROTID: No significant stenosis is visualized. The waveforms are within normal limits. [id number] athe rosclerotic plaquing in the common carotid artery. VERTEBRAL ARTERIES: Antegrade flow is seen in both vertebral arteries. MISCELLANEOUS: None. CONCLUSION: 1. No evidence for hemodynamically significant stenosis. Doc Campbell MD on June 15, 2016 at 9:34 Board Certified Radiologist. This report was verified electronically.
--- NOTE | 2016-06-15 10:46 | HHI.PR ---
Subjective Remarks Follow-up CVA 06/15/16-patient seen and examined, still with dysarthric speech. Overnight patient fell down hitting the right side of her eye however denies any loss of consciousness or head trauma Objective Vitals Vital Signs Date Time Temp Pulse Resp B/P Pulse Ox O2 Delivery O2 Flow Rate FiO2 06/15/16 08:00 97.1 71 18 167/68 94 06/15/16 05:00 80 20 201/89 95 06/15/16 04:00 97.3 77 20 188/82 96 06/15/16 00:25 97.5 76 19 200/91 94 06/14/16 23:00 72 06/14/16 20:27 98.1 72 18 193/86 96 06/14/16 17:30 96.8 67 18 215/95 98 06/14/16 15:01 97 21 06/14/16 14:44 71 18 180/77 97 Room Air 06/14/16 13:20 80 18 214/92 96 Room Air 06/14/16 12:16 98 Room Air 06/14/16 12:08 74 18 196/88 96 Room Air 06/14/16 11:57 98.5 79 16 204/88 96 I/O 06/14/16 06/14/16 06/14/16 06/15/16 06/15/16 06/15/16 07:00 15:00 23:00 07:00 15:00 23:00 Intake Total 320 ml Balance 320 ml Intake Oral 320 ml # Voids 1 1 2 # Bowel Movements 1 0 Result Diagram: 06/14/16 1220 06/14/16 1220 Imaging Last Impressions Head CT 06/15/16 0000 Signed Impressions: Service Date/Time: Wednesday, June 15, 2016 05:36 - CONCLUSION: 1. Chronic ischemic small vessel vasculopathy. 2. Remote infarct left basal ganglia. 3. No acute hemorrhage. Clem Prather MD Carotid Artery Ultrasound 06/15/16 0000 Signed Impressions: Service Date/Time: Wednesday, June 15, 2016 08:02 - CONCLUSION: 1. No evidence for hemodynamically significant stenosis. Doc Campbell MD Knee X-Ray 06/14/16 1210 Signed Impressions: Service Date/Time: Tuesday, June 14, 2016 13:01 - CONCLUSION: 1. No acute fracture or joint dislocation. 2. Moderate primary osteoarthritis at the knee joint with narrowing of the medial joint compartment. Dangelo Gay MD Chest X-Ray 06/14/16 1210 Signed Impressions: Service Date/Time: Tuesday, June 14, 2016 13:00 - CONCLUSION: No acute intrathoracic disease. Dangelo Gay MD Head Magnetic Resonance Angiography 06/14/16 0000 Signed Impressions: Service Date/Time: Tuesday, June 14, 2016 16:36 - CONCLUSION: 1. Atherosclerotic disease with significant stenoses involving the left A2 and left P1 segments. 2. Variant anatomy. Ricky Dangelo Jr., MD Brain MRI 06/14/16 0000 Signed Impressions: Service Date/Time: Tuesday, June 14, 2016 16:36 - CONCLUSION: Periventricular and lesser extent deep white matter microvascular ischemic demyelinization with the recent CT scan abnormality representing a remote lacunar infarct. There is a subtle area of diffusion abnormality in the mid left basal ganglion subcentimeter in size which is suggestive of any acute lacunar infarct Tye Fitch MD Objective Remarks GENERAL: NAD and dysarthric speech SKIN: Warm and dry.laceration above right eye HEAD: Normocephalic. EYES: No scleral icterus. No injection or drainage. NECK: Supple, trachea midline. No JVD or lymphadenopathy. CARDIOVASCULAR: Regular rate and rhythm without murmurs, gallops, or rubs. RESPIRATORY: Breath sounds equal bilaterally. No accessory muscle use. GASTROINTESTINAL: Abdomen soft, non-tender, nondistended. MUSCULOSKELETAL: No cyanosis, or edema. Neuro: Right-sided weakness BACK: Nontender without obvious deformity. No CVA tenderness. A/P Problem List: (1) CVA (cerebral vascular accident) ICD Code: I63.9 Status: Acute (2) Diabetes type 1, uncontrolled ICD Code: E10.65 Status: Acute (3) Troponin level elevated ICD Code: R79.89 Status: Acute (4) Abnormal urinalysis ICD Code: R82.90 Status: Acute Assessment and Plan 75-year-old female with Acute CVA: Treatment per stroke protocol -Continue with aspirin -Start statin therapy with Lipitor 10 mg at bedtime -NIHSS, Neuro checks, Monitor on telemetry -PT/OT/ST evaluations, rehab medicine consultation pending -Continue permissive HTN, IV Vasotec and IV labetalol if SBP >220 - lipid profile noted and pending HgbA1c - carotid U/S hemodynamically stable -Head CT 06/14/16 with the finding of 1 cm low density area left basal ganglion at the region of the knee of the internal capsule consistent with encephalomalacia or stroke indeterminate age - brain MRI/MRA noted and reviewed by me - echocardiogram with EF of 55-60% -Neurology consulted History of hypertension: Continue with permissive hypertension Diabetes type 2: Resume glipizide 5 mg by mouth twice a day and continue insulin sliding scale with fingerstick blood glucose monitoring. Hold other home regiment including metformin Abnormal UA: s/p Macrobid in the ED; continue Rocephin 1gm IV daily 06/15/16 pending UC Mildly elevated troponin I: Although no complaint of chest pain, ACS ruled out per protocol with serial cardiac enzyme and EKGs and treat accordingly. 2-D echo with EF 55-60% Tobacco abuse: Counseled to quit, start nicotinic patch DVT prophylaxis: Bilateral SCDs Problem Qualifiers (1) CVA (cerebral vascular accident): Qualified Code: I63.9 - Cerebrovascular accident (CVA), unspecified mechanism Clem Pickard MD Jun 15, 2016 10:46
[2016-06-15] MEDS: REMOVE OLD PATCH TD SCH (11:00)
--- NOTE | 2016-06-15 11:17 | MB ---
cc: CHAN MERINO MD DATE OF CONSULTATION: 06/14/2016 REASON FOR CONSULTATION Right-sided weakness with slurred speech. HISTORY OF PRESENT ILLNESS A 75-year-old female with a prior history of stroke eight years ago with no residual weakness that involved the left side of her body, presented to the emergency room at [facility] for evaluation of right upper and lower extremity weakness, speech difficulty and drooping of the face. The patient lives alone and she states that she fell off her bed around 7 a.m. on that morning and she dragged herself to her cell phone. She thinks she was weaker on the right upper extremity greater than the lower extremity and she noticed slurring of speech. Denies any disorientation, headache, blurred vision, double vision, loss of consciousness. The patient is adherent to Aspirin 81 mg daily[address] A head CT without contrast revealed a 1 cm low density area in the left basal ganglia consistent with encephalomalacia or stroke indeterminate age. REVIEW OF SYSTEMS A 12-point review of systems is negative except what is stated in the HPI. PAST MEDICAL HISTORY 1. History of remote stroke eight years ago without residual weakness. 2. Hyperlipidemia. 3. COPD. 4. Diabetes. 5. Arthritis. PAST SURGICAL HISTORY 1. Cholecystectomy. 2. Partial hysterectomy. MEDICATIONS 1. Glipizide. 2. Naproxen. 3. Aspirin 81. 4. Lisinopril 20. 5. Metformin. 6. Trazodone. 7. Tramadol. 8. Simvastatin. 9. Metoprolol. ALLERGIES NO KNOWN ALLERGIES. SOCIAL HISTORY No alcohol or substance abuse but smokes one pack per day. PHYSICAL EXAMINATION GENERAL: Awake, alert and oriented. A good historian. Not in apparent distress with evident slurring of speech. HEENT: Atraumatic, normocephalic. Normal vision. Normal hearing. NECK: Trachea midline, supple. No carotid bruit. CARDIOVASCULAR: Regular, rate and rhythm without murmurs. RESPIRATORY: Clear to auscultation. No wheezes. MUSCULOSKELETAL: Extremities without clubbing or cyanosis. There is limitation of movement in the right knee region because of chronic knee pain. NEUROLOGIC: Awake, alert, oriented to time, person and place. Intact memory. Slurred speech. Right facial weakness upper motor neuron lesion type. Pupils are equally reacting to light. No nystagmus. Mild elevation of the uvula. Motor examination: Right shoulder abduction 3/5, right elbow extension 3/5, right wrist extension 2/5, finger flexion 3/5, elbow flexion 4-/5, right lower extremity with hip flexion 4-/5, knee extension 3/5, foot dorsiflexion 4-/5, left upper and lower extremity 5/5. Reflexes 2+ bilateral throughout. Plantar bilaterally downgoing. Cerebellar function is intact other than the weakness on the right upper extremity. Sensation is intact throughout. PSYCHOLOGICAL: Normal mood and behavior. Intact judgement. No suicidal ideation. LABORATORY TESTS White blood cells 8.6, hemoglobin 15.5, MCV 90.9, platelet count 163. INR 1. Sodium 136, potassium 4.7, chloride 99, anion gap 14, BUN 6, creatinine 0.63, random glucose 240, calcium 1, AST 64, ALT 56, alkaline phosphatase 183, troponin 0.14, total CK 175, albumin 3.5. DIAGNOSTIC IMAGING Head CT scan without contrast on 06/14/2016 revealed a 1 cm low density area left basal ganglia at the region of the knee of the internal capsule consistent with encephalomalacia or stroke indeterminate age. Brain MRI revealed periventricular and lesser extent deep white matter microvascular ischemic demyelinization with a recent CT scan abnormality representing a remote lacunar infarct. There is a subtle area of diffusion abnormality in the mid left basal ganglion subcentimeter in size which is suggestive of an acute lacunar infarct. Head MRA revealed atherosclerotic disease with significant stenoses involving the left A2 and left P1 segments. DIAGNOSTIC IMPRESSION 1. Acute/subacute ischemic stroke left basal ganglia lesion. 2. Likely etiology is uncontrolled diabetes with an acute infarct. PLAN 1. Neuro checks q.4 hourly. 2. N.p.o. until cleared by swallow evaluation. 3. Aspirin 325 daily. 4. PT, OT recommendations are appreciated. 5. Carotid ultrasound. 6. Telemetry. 7. Cardiac echo. 8. DVT prophylaxis, SCDs. 9. GI prophylaxis. 10. Continue statins at home doses. Thank you for the opportunity to participate in the care of your patient. MD LAY Watson/PRESTON /8:03 AM /10:27 AM
[2016-06-15] MEDS: glipiZIDE 5 MG TAB PO SCH ×2 (12:28→17:23)
[2016-06-15] MEDS: NICOTINE 21 MG/24 HR PATCH TD SCH (12:29)
--- NOTE | 2016-06-15 14:36 | EKG ---
Date Performed: 06/14/2016 Time Performed: 12:10:41 PTAGE: 75 years EKG: Sinus rhythm Compared to previous tracing, the nonspecific inferolateral ST-T wave changes have improved. NORMAL ECG PREVIOUS TRACING : 07/15/2006 18.15 DOCTOR: Nona Santos Interpretating Date/Time 06/15/2016 14:35:35
[2016-06-15] MEDS ORDERED: ATORVASTATIN 10 MG TAB PO SCH (21:00)
[2016-06-15] MEDS: PRAVASTATIN SOD 80 MG TAB PO SCH (21:29)
[2016-06-16] VITALS (9 sets, daily range): BP systolic 168–205; BP diastolic 74–103; PULSE 72–94; RESP 18–20; TEMP 96.8–99; O2SAT 92–97
[2016-06-16] MEDS: INSULIN ASPART SUPPLEMENTAL SCALE SQ SCH ×4 (06:57→20:42)
[2016-06-16] MEDS: cefTRIAXone INJ 1,000 MG in SODIUM CHLORIDE 0.9% INJ 100 ML IV SCH (08:20)
[2016-06-16] MEDS: glipiZIDE 5 MG TAB PO SCH ×2 (08:20→16:05)
[2016-06-16] MEDS: PANTOPRAZOLE SOD 40 MG DELAYED RELEASE TAB PO SCH (08:20)
[2016-06-16] MEDS: REMOVE OLD PATCH TD SCH (08:20)
[2016-06-16] MEDS: ASPIRIN 325 MG TAB PO SCH (08:20)
[2016-06-16] MEDS: NICOTINE 21 MG/24 HR PATCH TD SCH (08:20)
[2016-06-16] MEDS: SODIUM CHLORIDE 0.9% FLUSH 5 ML FLUSH IVF SCH ×2 (08:25→20:37)
--- NOTE | 2016-06-16 09:46 | HHI.PR ---
Subjective Remarks Follow-up CVA 06/15/16-patient seen and examined, still with dysarthric speech. Overnight patient fell down hitting the right side of her eye however denies any loss of consciousness or head trauma 06/16/16-patient seen and examined, reports significant improvement of right- sided weakness as well as slurred speech and facial droop. Denies any chest pain or shortness of breath. Objective Vitals Vital Signs Date Time Temp Pulse Resp B/P Pulse Ox O2 Delivery O2 Flow Rate FiO2 06/16/16 08:55 97 06/16/16 08:35 97.3 74 20 168/88 97 06/16/16 04:59 97.5 73 18 176/74 96 06/16/16 04:26 95 21 06/15/16 23:46 97.0 98 18 184/84 96 06/15/16 20:47 97.5 81 18 178/84 95 06/15/16 18:11 96 21 06/15/16 16:00 98.5 77 18 160/71 96 06/15/16 12:00 97.4 71 18 181/79 96 06/15/16 11:39 98 21 I/O 06/15/16 06/15/16 06/15/16 06/16/16 06/16/16 06/16/16 07:00 15:00 23:00 07:00 15:00 23:00 Intake Total 356 ml Balance 356 ml Intake Oral 240 ml IV Total 116 ml # Voids 2 2 1 # Bowel Movements 0 Result Diagram: 06/14/16 1220 06/14/16 1220 Imaging Last Impressions Head CT 06/15/16 0000 Signed Impressions: Service Date/Time: Wednesday, June 15, 2016 05:36 - CONCLUSION: 1. Chronic ischemic small vessel vasculopathy. 2. Remote infarct left basal ganglia. 3. No acute hemorrhage. Clem Prather MD Carotid Artery Ultrasound 06/15/16 0000 Signed Impressions: Service Date/Time: Wednesday, June 15, 2016 08:02 - CONCLUSION: 1. No evidence for hemodynamically significant stenosis. Doc Campbell MD Knee X-Ray 06/14/16 1210 Signed Impressions: Service Date/Time: Tuesday, June 14, 2016 13:01 - CONCLUSION: 1. No acute fracture or joint dislocation. 2. Moderate primary osteoarthritis at the knee joint with narrowing of the medial joint compartment. Dangelo Gay MD Chest X-Ray 06/14/16 1210 Signed Impressions: Service Date/Time: Tuesday, June 14, 2016 13:00 - CONCLUSION: No acute intrathoracic disease. Dangelo Gay MD Head Magnetic Resonance Angiography 06/14/16 0000 Signed Impressions: Service Date/Time: Tuesday, June 14, 2016 16:36 - CONCLUSION: 1. Atherosclerotic disease with significant stenoses involving the left A2 and left P1 segments. 2. Variant anatomy. Ricky Dangelo Jr., MD Brain MRI 06/14/16 0000 Signed Impressions: Service Date/Time: Tuesday, June 14, 2016 16:36 - CONCLUSION: Periventricular and lesser extent deep white matter microvascular ischemic demyelinization with the recent CT scan abnormality representing a remote lacunar infarct. There is a subtle area of diffusion abnormality in the mid left basal ganglion subcentimeter in size which is suggestive of any acute lacunar infarct Tye Fitch MD Objective Remarks GENERAL: NAD and dysarthric speech SKIN: Warm and dry.laceration above right eye HEAD: Normocephalic. EYES: No scleral icterus. No injection or drainage. NECK: Supple, trachea midline. No JVD or lymphadenopathy. CARDIOVASCULAR: Regular rate and rhythm without murmurs, gallops, or rubs. RESPIRATORY: Breath sounds equal bilaterally. No accessory muscle use. GASTROINTESTINAL: Abdomen soft, non-tender, nondistended. MUSCULOSKELETAL: No cyanosis, or edema. Neuro: Right-sided weakness BACK: Nontender without obvious deformity. No CVA tenderness. A/P Problem List: (1) CVA (cerebral vascular accident) ICD Code: I63.9 Status: Acute (2) Diabetes type 1, uncontrolled ICD Code: E10.65 Status: Acute (3) Troponin level elevated ICD Code: R79.89 Status: Acute (4) Abnormal urinalysis ICD Code: R82.90 Status: Acute Assessment and Plan 75-year-old female with Acute CVA: Treatment per stroke protocol -Continue with aspirin -Continue statin therapy -NIHSS, Neuro checks, Monitor on telemetry -PT/OT/ST evaluations, rehab medicine consultation pending -Continue permissive HTN, IV Vasotec and IV labetalol if SBP >220 - lipid profile noted and pending HgbA1c - carotid U/S hemodynamically stable -Head CT 06/14/16 with the finding of 1 cm low density area left basal ganglion at the region of the knee of the internal capsule consistent with encephalomalacia or stroke indeterminate age - brain MRI/MRA noted and reviewed by me - echocardiogram with EF of 55-60% -Neurology consulted History of hypertension: Continue with permissive hypertension Diabetes type 2: Continue glipizide 5 mg by mouth twice a day and continue insulin sliding scale with fingerstick blood glucose monitoring. Continue to Hold other home regiment including metformin Abnormal UA: continue Rocephin 1gm IV daily 06/15/16 pending UC Mildly elevated troponin I: Although no complaint of chest pain, ACS ruled out per protocol with serial cardiac enzyme and EKGs and treat accordingly. 2-D echo with EF 55-60% Tobacco abuse: Counseled to quit, nicotinic patch DVT prophylaxis: Bilateral SCDs Problem Qualifiers (1) CVA (cerebral vascular accident): Qualified Code: I63.9 - Cerebrovascular accident (CVA), unspecified mechanism Clem Pickard MD Jun 16, 2016 09:46
[2016-06-16] MEDS: METOPROLOL TARTRATE 50 MG TAB PO SCH (20:36)
[2016-06-16] MEDS: PRAVASTATIN SOD 80 MG TAB PO SCH (20:36)
[2016-06-16] MEDS ORDERED: traZODone HCL 100 MG TAB PO SCH (21:00)
--- NOTE | 2016-06-16 23:45 | HHI.PR ---
Review/Management Diagnosis - Acute/subacute ischemic stroke left basal ganglia lesion. Likely etiology is uncontrolled hypertension and diabetes with an acute infarct. - Head CT scan without contrast on 06/14/2016 revealed a 1 cm low density area left basal ganglia at the region of the knee of the internal capsule consistent with encephalomalacia or stroke indeterminate age. - Brain MRI revealed periventricular and lesser extent deep white matter microvascular ischemic demyelinization with a recent CT scan abnormality representing a remote lacunar infarct. There is a subtle area of diffusion abnormality in the mid left basal ganglion subcentimeter in size which is suggestive of an acute lacunar infarct. -Head MRA revealed atherosclerotic disease with significant stenoses involving the left A2 and left P1 segments. Plan - Neuro checks q.4 hourly. - Aspirin 325 daily. - PT, OT recommendations are appreciated. - DVT prophylaxis, SCDs. - GI prophylaxis. - Continue statins at home doses. - Placement, rehab and future follow up with neurology Diagnosis/Plan: Subjective Subjective Comments No acute events reported Patient is gradually improving in regards to muscle strength, swallowing and speech CUS with no significant hemodynamically significant stenosis ECHO EF 55-60% Active Medications Current Medications Medications (Trade) Dose Ordered Sig/Kaela Route Start Time Stop Time Status Last Admin (NS Flush) 2 ml BID IVF 06/14/16 21:00 06/16/16 20:37 (NS Flush) 2 ml UNSCH PRN IVF 06/14/16 14:00 (Vasotec Inj) 1.25 mg Q4H PRN IV 06/14/16 14:00 06/16/16 12:36 Labetalol HCl 10 mg 10 mg Q2H PRN IV 06/14/16 14:00 (Rocephin Inj/NS Inj) 100 ml @ 200 mls/hr Q24H IV 06/15/16 09:00 06/16/16 08:20 (Aspirin) 325 mg DAILY PO 06/15/16 09:00 06/16/16 08:20 (Pravachol) 80 mg HS PO 06/14/16 21:00 06/16/16 20:36 (Protonix) 40 mg DAILY PO 06/15/16 09:00 06/16/16 08:20 (D50w (Vial) Inj) 25 ml UNSCH PRN IV PUSH 06/14/16 18:45 (Glucagon Inj) 1 mg UNSCH PRN OTHER 06/14/16 18:45 (Habitrol 21 Mg Patch.24 Hr) 1 patch DAILY TD 06/15/16 11:00 06/16/16 08:20 Miscellaneous Information 1 DAILY TD 06/15/16 11:00 06/16/16 08:20 (Glucotrol) 5 mg BIDAC PO 06/15/16 11:00 06/16/16 16:05 (Prinivil) 20 mg DAILY PO 06/17/16 09:00 (Lopressor) 50 mg BID PO 06/16/16 21:00 06/16/16 20:36 (Desyrel) 100 mg HS PO 06/16/16 21:00 06/16/16 20:36 Allergies Allergies Coded Allergies No Known Allergies (Verified Allergy, Mild, 07/16/06) Exam I&O / VS 06/15/16 06/15/16 06/16/16 15:00 23:00 07:00 Intake Total 356 ml Balance 356 ml Intake Oral 240 ml IV Total 116 ml # Voids 2 1 Vital Signs Date Time Temp Pulse Resp B/P Pulse Ox O2 Delivery O2 Flow Rate FiO2 06/16/16 20:31 99.0 84 18 190/84 92 06/16/16 16:00 96.8 74 20 194/77 97 06/16/16 12:00 97.2 74 20 205/103 97 06/16/16 10:00 72 06/16/16 08:55 97 06/16/16 08:35 97.3 74 20 168/88 97 06/16/16 04:59 97.5 73 18 176/74 96 06/16/16 04:26 95 21 06/15/16 23:46 97.0 98 18 184/84 96 Exam Comments GENERAL: Awake, alert and oriented. A good historian. Not in apparent distress with evident slurring of speech. HEENT: Atraumatic, normocephalic. Normal vision. Normal hearing. NECK: Trachea midline, supple. No carotid bruit. CARDIOVASCULAR: Regular, rate and rhythm without murmurs. RESPIRATORY: Clear to auscultation. No wheezes. MUSCULOSKELETAL: Extremities without clubbing or cyanosis. There is limitation of movement in the right knee region because of chronic knee pain. NEUROLOGIC: Awake, alert, oriented to time, person and place. Intact memory. Mild slurred speech. Right facial weakness upper motor neuron lesion type. Pupils are equally reacting to light. No nystagmus. Mild elevation of the uvula. Motor examination: Right shoulder abduction 4-/5, right elbow extension 4-/5, right wrist extension 4-/5, finger flexion 4-/5, elbow flexion 4-/5, right lower extremity with hip flexion 4-/5, knee extension 3/5, foot dorsiflexion 4-/5, left upper and lower extremity 5/5. Reflexes 2+ bilateral throughout. Plantar bilaterally downgoing. Cerebellar function is intact other than the weakness on the right upper extremity. Sensation is intact throughout. PSYCHOLOGICAL: Normal mood and behavior. Intact judgement. No suicidal ideation. Objective Radiology Results Last [address] 06/15/16 0000 Signed Impressions: Service Date/Time: Wednesday, June 15, 2016 05:36 - CONCLUSION: 1. Chronic ischemic small vessel vasculopathy. 2. Remote infarct left basal ganglia. 3. No acute hemorrhage. Clem Prather MD Carotid Artery Ultrasound 06/15/16 0000 Signed Impressions: Service Date/Time: Wednesday, June 15, 2016 08:02 - CONCLUSION: 1. No evidence for hemodynamically significant stenosis. Doc Campbell MD Micro and Labs Date/Time Procedure Status Source Growth 06/14/16 12:20 Urine Culture - Preliminary Resulted Urine Catheterized Urine Staph Sp Coagulase Negative Astrid Dunn MD Jun 16, 2016 23:45
[2016-06-17 00:01] VITALS: BP 194/82; PULSE 65; RESP 18; TEMP 97.9; O2SAT 94
[2016-06-17 05:17] VITALS: BP 146/66; PULSE 60; RESP 18; TEMP 97.9; O2SAT 95
[2016-06-17] MEDS: INSULIN ASPART SUPPLEMENTAL SCALE SQ SCH ×2 (06:45→11:34)
[2016-06-17] MEDS: glipiZIDE 5 MG TAB PO SCH (07:59)
[2016-06-17] MEDS: PANTOPRAZOLE SOD 40 MG DELAYED RELEASE TAB PO SCH (07:59)
[2016-06-17] MEDS: METOPROLOL TARTRATE 50 MG TAB PO SCH (07:59)
[2016-06-17 08:00] VITALS: BP 186/76; PULSE 74; RESP 20; TEMP 96.2; O2SAT 97
[2016-06-17] MEDS: NICOTINE 21 MG/24 HR PATCH TD SCH (08:00)
[2016-06-17] MEDS: REMOVE OLD PATCH TD SCH (08:00)
[2016-06-17] MEDS: ASPIRIN 325 MG TAB PO SCH (08:00)
[2016-06-17] MEDS: cefTRIAXone INJ 1,000 MG in SODIUM CHLORIDE 0.9% INJ 100 ML IV SCH (08:01)
[2016-06-17] MEDS: SODIUM CHLORIDE 0.9% FLUSH 5 ML FLUSH IVF SCH (08:02)
[2016-06-17 08:49] LABS: BICARBONATE 26.2 MEQ/L (21.0-32.0); POTASSIUM 3.4 MEQ/L (3.5-5.1)
[2016-06-17] MEDS ORDERED: LISINOPRIL 20 MG TAB PO SCH (09:00)
--- NOTE | 2016-06-17 09:06 | HHI.PR ---
Subjective Remarks Follow-up CVA 06/15/16-patient seen and examined, still with dysarthric speech. Overnight patient fell down hitting the right side of her eye however denies any loss of consciousness or head trauma 06/16/16-patient seen and examined, reports significant improvement of right- sided weakness as well as slurred speech and facial droop. Denies any chest pain or shortness of breath. 06/17/16-patient seen and examined; she reports significant improvement again to that right arm and patient is looking for discharge. No acute event overnight. Case discussed with behavioral health case manager. Objective Vitals Vital Signs Date Time Temp Pulse Resp B/P Pulse Ox O2 Delivery O2 Flow Rate FiO2 06/17/16 08:00 96.2 74 20 186/76 97 06/17/16 05:17 97.9 60 18 146/66 95 06/17/16 00:01 97.9 65 18 194/82 94 06/16/16 20:31 99.0 84 18 190/84 92 06/16/16 20:00 94 06/16/16 16:00 96.8 74 20 194/77 97 06/16/16 12:00 97.2 74 20 205/103 97 06/16/16 10:00 72 I/O 06/16/16 06/16/16 06/16/16 06/17/16 06/17/16 06/17/16 07:00 15:00 23:00 07:00 15:00 23:00 Intake Total 450 ml Balance 450 ml Intake Oral 450 ml # Voids 1 2 2 # Bowel Movements 0 0 Result Diagram: 06/14/16 1220 06/17/16 0724 Imaging Last Impressions Head CT 06/15/16 0000 Signed Impressions: Service Date/Time: Wednesday, June 15, 2016 05:36 - CONCLUSION: 1. Chronic ischemic small vessel vasculopathy. 2. Remote infarct left basal ganglia. 3. No acute hemorrhage. Clem Prather MD Carotid Artery Ultrasound 06/15/16 0000 Signed Impressions: Service Date/Time: Wednesday, June 15, 2016 08:02 - CONCLUSION: 1. No evidence for hemodynamically significant stenosis. Doc Campbell MD Knee X-Ray 06/14/16 1210 Signed Impressions: Service Date/Time: Tuesday, June 14, 2016 13:01 - CONCLUSION: 1. No acute fracture or joint dislocation. 2. Moderate primary osteoarthritis at the knee joint with narrowing of the medial joint compartment. Dangelo Gay MD Chest X-Ray 06/14/16 1210 Signed Impressions: Service Date/Time: Tuesday, June 14, 2016 13:00 - CONCLUSION: No acute intrathoracic disease. Dangelo Gay MD Head Magnetic Resonance Angiography 06/14/16 0000 Signed Impressions: Service Date/Time: Tuesday, June 14, 2016 16:36 - CONCLUSION: 1. Atherosclerotic disease with significant stenoses involving the left A2 and left P1 segments. 2. Variant anatomy. Ricky Dangelo Jr., MD Brain MRI 06/14/16 0000 Signed Impressions: Service Date/Time: Tuesday, June 14, 2016 16:36 - CONCLUSION: Periventricular and lesser extent deep white matter microvascular ischemic demyelinization with the recent CT scan abnormality representing a remote lacunar infarct. There is a subtle area of diffusion abnormality in the mid left basal ganglion subcentimeter in size which is suggestive of any acute lacunar infarct Tye Fitch MD Objective Remarks GENERAL: NAD and dysarthric speech SKIN: Warm and dry.laceration above right eye HEAD: Normocephalic. EYES: No scleral icterus. No injection or drainage. NECK: Supple, trachea midline. No JVD or lymphadenopathy. CARDIOVASCULAR: Regular rate and rhythm without murmurs, gallops, or rubs. RESPIRATORY: Breath sounds equal bilaterally. No accessory muscle use. GASTROINTESTINAL: Abdomen soft, non-tender, nondistended. MUSCULOSKELETAL: No cyanosis, or edema. Neuro: Right-sided weakness BACK: Nontender without obvious deformity. No CVA tenderness. Procedures None A/P Problem List: (1) CVA (cerebral vascular accident) ICD Code: I63.9 Status: Acute (2) Diabetes type 1, uncontrolled ICD Code: E10.65 Status: Chronic (3) Troponin level elevated ICD Code: R79.89 Status: Acute (4) Abnormal urinalysis ICD Code: R82.90 Status: Acute Assessment and Plan 75-year-old female with Acute CVA: Treatment per stroke protocol -Continue with aspirin -Continue statin therapy -NIHSS, Neuro checks, Monitor on telemetry -PT/OT/ST evaluations, rehab medicine consultation pending -s/p permissive HTN, - lipid profile noted and pending HgbA1c - carotid U/S hemodynamically stable -Head CT 06/14/16 with the finding of 1 cm low density area left basal ganglion at the region of the knee of the internal capsule consistent with encephalomalacia or stroke indeterminate age - brain MRI/MRA noted and reviewed by me - echocardiogram with EF of 55-60% -Neurology consulted History of hypertension: s/p permissive hypertension; all oral antihypertensive medication resumed Diabetes type 2: Continue glipizide 5 mg by mouth twice a day and continue insulin sliding scale with fingerstick blood glucose monitoring. Continue to Hold other home regiment including metformin Abnormal UA: continue Rocephin 1gm IV daily 06/15/16 pending UC Mildly elevated troponin I: Although no complaint of chest pain, ACS ruled out per protocol with serial cardiac enzyme and EKGs and treat accordingly. 2-D echo with EF 55-60% Tobacco abuse: Counseled to quit, nicotinic patch DVT prophylaxis: Bilateral SCDs Problem Qualifiers (1) CVA (cerebral vascular accident): Qualified Code: I63.9 - Cerebrovascular accident (CVA), unspecified mechanism Clem Pickard MD Jun 17, 2016 09:06
[2016-06-17] MEDS ORDERED: ASPI325T PO (09:08)
[2016-06-17] MEDS ORDERED: CIPR-9 PO (09:08)
--- NOTE | 2016-06-17 09:12 | HHI.DS ---
Discharge Summary Admission Date Jun 14, 2016 at 13:55 Discharge Date: Jun 17, 2016 Admitting Diagnosis CVA (1) CVA (cerebral vascular accident) ICD Code: I63.9 (2) Diabetes type 1, uncontrolled ICD Code: E10.65 (3) Troponin level elevated ICD Code: R79.89 (4) Abnormal urinalysis ICD Code: R82.90 Procedures None Brief History - From Admission 75-year-old female with a prior history of CVA was brought to the ED today for evaluation of right upper and lower extremities weakness along with some speech difficulty as well as facial droop since yesterday but worse today, as patient fell off her bed around 7 AM this morning landing on her face. Patient states she usually takes aspirin daily which she did take. She report a prior history of CVA 8 years ago without any residual weakness. She denies any chest pain, shortness of breath, GI bleed. CT of the brain shows a 1 cm low density area in the left basal ganglia on the region of the knee of the internal capsule consistent with encephalomalacia or stroke of indeterminate age CBC/BMP: 06/14/16 1220 06/17/16 0724 Significant Findings Laboratory Tests Test 06/14/16 06/14/16 06/15/16 06/15/16 12:20 19:12 00:41 08:33 Blood Urea Nitrogen 6 MG/DL (7-18) Random Glucose 240 MG/DL (74-106) Calcium Level 8.4 MG/DL (8.5-10.1) Aspartate Amino Transf 64 U/L (15-37) (AST/SGOT) Alanine Aminotransferase 56 U/L (10-53) (ALT/SGPT) Alkaline Phosphatase 183 U/L (45-117) Troponin I 0.14 NG/ML 0.18 NG/ML 0.19 NG/ML (0.02-0.05) (0.02-0.05) (0.02-0.05) Hemoglobin 15.5 GM/DL (11.6-15.3) Urine Glucose (UA) 1000 mg/dL (NEG) Urine Ketones TRACE mg/dL (NEG) Urine Nitrite POS (NEG) Urine Mucus FEW /lpf (OCC) Triglycerides Level 291 MG/DL (42-150) Cholesterol Level 210 MG/DL (120-200) LDL Cholesterol 109 MG/DL (0-99) Test 06/17/16 07:24 Potassium Level 3.4 MEQ/L (3.5-5.1) Random Glucose 163 MG/DL (74-106) Imaging Last Impressions Head CT 06/15/16 0000 Signed Impressions: Service Date/Time: Wednesday, June 15, 2016 05:36 - CONCLUSION: 1. Chronic ischemic small vessel vasculopathy. 2. Remote infarct left basal ganglia. 3. No acute hemorrhage. Clem Prather MD Carotid Artery Ultrasound 06/15/16 0000 Signed Impressions: Service Date/Time: Wednesday, June 15, 2016 08:02 - CONCLUSION: 1. No evidence for hemodynamically significant stenosis. Doc Campbell MD Knee X-Ray 06/14/16 1210 Signed Impressions: Service Date/Time: Tuesday, June 14, 2016 13:01 - CONCLUSION: 1. No acute fracture or joint dislocation. 2. Moderate primary osteoarthritis at the knee joint with narrowing of the medial joint compartment. Dangelo Gay MD Chest X-Ray 06/14/16 1210 Signed Impressions: Service Date/Time: Tuesday, June 14, 2016 13:00 - CONCLUSION: No acute intrathoracic disease. Dangelo Gay MD Head Magnetic Resonance Angiography 06/14/16 0000 Signed Impressions: Service Date/Time: Tuesday, June 14, 2016 16:36 - CONCLUSION: 1. Atherosclerotic disease with significant stenoses involving the left A2 and left P1 segments. 2. Variant anatomy. Ricky Dangelo Jr., MD Brain MRI 06/14/16 0000 Signed Impressions: Service Date/Time: Tuesday, June 14, 2016 16:36 - CONCLUSION: Periventricular and lesser extent deep white matter microvascular ischemic demyelinization with the recent CT scan abnormality representing a remote lacunar infarct. There is a subtle area of diffusion abnormality in the mid left basal ganglion subcentimeter in size which is suggestive of any acute lacunar infarct Tye Fitch MD PE at Discharge GENERAL: NAD and dysarthric speech SKIN: Warm and dry.laceration above right eye HEAD: Normocephalic. EYES: No scleral icterus. No injection or drainage. NECK: Supple, trachea midline. No JVD or lymphadenopathy. CARDIOVASCULAR: Regular rate and rhythm without murmurs, gallops, or rubs. RESPIRATORY: Breath sounds equal bilaterally. No accessory muscle use. GASTROINTESTINAL: Abdomen soft, non-tender, nondistended. MUSCULOSKELETAL: No cyanosis, or edema. Neuro: Right-sided weakness BACK: Nontender without obvious deformity. No CVA tenderness. Hospital Course Patient was admitted secondary to acute CVA and was treated per ischemic stroke protocol with consultation to neurology, PT/OT/speech therapy. She was started on aspirin therapy along with statin and permissive hypertension was initiated. She was placed on insulin sliding scale and subsequently her oral hypoglycemic medication except metformin was resumed. Patient tolerated ADA diet. On day #3 of hospitalization, permissive hypertension will discontinue and patient was started on oral antihypertensive medications. She was also treated for UTI initially with IV antibiotics then switch to by mouth on discharge. Patient was advised against tobacco and was provided nicotinic patch. DVT and GI prophylaxis were provided. Prior to discharge patient condition improved. Pt Condition on Discharge: Stable Discharge Disposition: Rehab Inpatient Discharge Time: > 30 minutes Discharge Instructions DIET: Follow Instructions for: Diabetic Diet Speech Therapy-Diet Recommends: Soft, [place] Thickened Liquids Activities you can perform: Regular-No Restrictions Follow up Referrals: Neurology PCP Follow-up - 2-3 Days New Medications: Ciprofloxacin (Cipro) 500 Mg Tab 500 MG PO BID Infection #6 Ref 0 TAB Aspirin (Aspirin) 325 Mg Tab 325 MG PO DAILY Stroke Prevention #30 TAB Continued Medications: Glipizide (Glipizide) 5 Mg Tab 5 MG PO BIDAC Take 30 minutes before a meal Blood Sugar Management #60 Ref 0 TAB Lisinopril (Lisinopril) 20 Mg Tab 20 MG PO DAILY #30 Ref 0 TAB Metformin (Metformin) 500 Mg Tab 500 MG PO DAILY With a meal Blood Sugar Management #30 Ref 0 TAB Metoprolol Tartrate (Metoprolol Tartrate) 50 Mg Tab 50 MG PO BID #60 Ref 0 TAB Simvastatin (Simvastatin) 40 Mg Tab 40 MG PO HS Cholesterol Management #30 Ref 0 TAB Trazodone (Trazodone) 100 Mg Tab 100 MG PO HS Control Depression #30 Ref 0 TAB Discontinued Medications: Aspirin (Aspirin) 81 Mg Tabdr 81 MG PO DAILY TAB Naproxen (Naproxen) 500 Mg Tab 500 MG PO BID #60 Ref 0 TAB Tramadol (Tramadol) 50 Mg Tab 50 MG PO Q4H PRN PAIN Ref 0 TAB Clem Pickard MD Jun 17, 2016 09:12
[2016-06-17 10:37] VITALS: PULSE 66
[2016-06-17 12:29] VITALS: BP 118/76; PULSE 68; RESP 20; TEMP 96.7; O2SAT 96
[2016-06-17 17:09] LABS: HEMOGLOBIN A1a 1.1 %; HEMOGLOBIN A1b 1.1 %; HEMOGLOBIN Ao 80.9 %; HEMOGLOBIN F 1.3 %; HEMOGLOBIN LA1C 2.4 %; HEMOGLOBIN P3 4.2 %
--- NOTE | 2016-06-17 18:37 | HM ---
Date Performed: 06/15/2016 Time Performed: 10:26:00 HOOKUP DATE: 06/15/16 10:26:00 AM Sat ANALYSIS START TIME: 06/15/2016 10:31:00 AM ANALYSIS END TIME: 06/16/2016 10:34:59 AM PATIENT AGE: 75 PATIENT HEIGHT PATIENT WEIGHT DRUG LIST PATIENT DIAGNOSIS: MEDICAL/EVAC TEST NARRATIVE: The patient's average heart rate was 80 BPM. No episodes of tachycardia wer e noted. No episodes of bradycardia were noted. No pauses exceeding 2.0 seconds were noted. 186 ventricular ectopics, which represented < 1% of the total beat count, were noted. The highest ve ntricular ectopic frequency occurred from 11:00 PM to 12:00 AM Sun. During this time 20 VE(s) occurr ed. Ventricular ectopics were observed as 182 isolated beat(s) and as 2 couplet(s). No runs were no eagle. 12 supraventricular ectopics, which represented < 1% of the total beat count, were noted. T he highest supraventricular ectopic frequency occurred from 02:00 PM to 03:00 PM Sat. During this ti me 3 SVE(s) occurred. Multiple episodes of ST depression (defined as -1.0 mm or more) were noted in channel 1. The maximum depression of -3.1 mm occurred at 04:47:17 PM Sat. Multiple episodes of ST depression (defined as -1.0 mm or more) were noted in channel 2. The maximum depression of -2.3 mm occurred at 02:25:56 PM Sat. Multiple episodes of ST depression (defined as -1.0 mm or more) wer e noted in channel 3. The maximum depression of -2.2 mm occurred at 11:10:09 PM Sat. TEST INTERPRETATION: 24 Hour Holter Monitor-Dr. Packer The patient predominant rhythm was s inus. There were ocassional premature atrial and ventricular contractions. There were no ventricular or any kind of a pause noted, and no atrial fibrillation appreciatied. There were no diary entries of any cardiac complaints provided. Signed by : Mavis Calderon
[2016-06-17] MEDS ORDERED: CIPROFLOXACIN 500 MG TAB PO SCH (21:00)
[2016-06-25] MEDS ORDERED: GETGO ROLLING W1 MI1 (14:41)
[2016-07-01] MEDS ORDERED: SIMV40TA PO (12:15)
[2016-07-01] MEDS ORDERED: ASPI325T PO (12:15)
[2016-07-01] MEDS ORDERED: TRAZ100T4 PO (12:15)
[2016-07-01] MEDS ORDERED: GLIP5TAB8 PO (12:15)
[2016-07-01] MEDS ORDERED: AMLO5 PO (12:15)
[2016-07-01] MEDS ORDERED: METO-309 PO (12:15)
[2016-07-01] MEDS ORDERED: LISI-515 PO (12:15)
[2016-07-01] MEDS ORDERED: NICO7DIS2 T-DERMAL (12:15)
[2016-07-01] MEDS ORDERED: ACET325T PO (12:15)
[2016-07-01] MEDS ORDERED: PANT40TA3 PO (12:15)
[2016-07-02] MEDS ORDERED: METO25TA3 PO (08:53)
== END 2016-06-17 14:20 | DRG 65 ==
LOC: NEPE 11:51 → NEDA 13:55 → N05B 17:09
PROVIDERS: ADMIT Hospitalist; ATTEND Hospitalist
DX: I63.9 Cerebral infarction, unspecified (principal); G81.91 Hemiplegia, unspecified affecting right dominant side; E11.65 Type 2 diabetes mellitus with hyperglycemia; G93.89 Other specified disorders of brain; I67.2 Cerebral atherosclerosis; R47.1 Dysarthria and anarthria; R29.810 Facial weakness; R47.81 Slurred speech; I10 Essential (primary) hypertension; J44.9 Chronic obstructive pulmonary disease, unspecified; R82.90 Unspecified abnormal findings in urine; E78.00 Pure hypercholesterolemia, unspecified; E78.5 Hyperlipidemia, unspecified; F17.210 Nicotine dependence, cigarettes, uncomplicated; F32.9 Major depressive disorder, single episode, unspecified; W06.XXXA Fall from bed, initial encounter; Z79.82 Long term (current) use of aspirin; Z79.84 Long term (current) use of oral hypoglycemic drugs; Z86.73 Personal history of transient ischemic attack (TIA), and cerebral infarction without residual deficits
CPT/HCPCS: 70450; 70544; 70551; 71010; 73564; 80048; 80053; 80061; 80301; 81001; 82550; 82948; 83036; 84484; 85025; 85610; 85730; 86403; 87077; 87086; 87186; 93005; 93225; 93226; 93306; 93880; G0479; J0696; J1815